=== PATIENT | female | born 1995 | race African-American/Black ===

== ENCOUNTER 2018-10-12 07:14 | Emergency (ER) | payer OTHER ==
[2018-10-12 07:28] VITALS: BP 117/56; PULSE 75; TEMP 98.4; BMI 34.7
--- NOTE | 2018-10-12 07:40 | PDOC ---
History of Present Illness - General Chief Complaint: Injury Stated Complaint: R ANKLE INJURY Time Seen by Provider: 10/12/18 07:33 History Source: Patient - History of Present Illness Occurred: reports: other Lower Extremity Pain Location: right: ankle Method of Injury: Yes: fell Past History - Past Medical History Allergies/Adverse Reactions: Allergies Allergy/AdvReac Type Severity Reaction Status Date / Time No Known Allergies Allergy Verified 01/27/16 14:51 Home Medications: Ambulatory Orders Cholecalciferol (Vitamin D3) [Vitamin D3] 0 unit PO DAILY 10/12/18 Ferrous Sulfate [Iron] 325 mg PO DAILY 10/12/18 Ibuprofen [Motrin -] 400 mg PO Q6H PRN 10/12/18 Anemia: Yes COPD: No - Immunization History Immunization Up to Date: No - Suicide/Smoking/Psychosocial Hx Smoking History: Never smoked Have you smoked in the past 12 months: No Information on smoking cessation initiated: No Hx Alcohol Use: No Drug/Substance Use Hx: No Substance Use Type: None Review of Systems - Review of Systems Musculoskeletal: Yes: Joint Pain, Joint Swelling *Physical Exam - Vital Signs Last Vital Signs Temp Pulse Resp BP Pulse Ox 98.4 F 75 18 117/56 L 99 10/12/18 07:16 10/12/18 07:16 10/12/18 07:16 10/12/18 07:16 10/12/18 07:16 - Physical Exam General Appearance: Yes: Appropriately Dressed. No: Apparent Distress HEENT: positive: Normal Voice Extremity: positive: Swelling (minimal sweling to lat malleolus of R ankle, limping in ED) ED Treatment Course - RADIOLOGY Radiology Studies Ordered: Category Date Time Status ANKLE & FOOT-RIGHT* [RAD] Stat Radiology 10/12/18 07:36 Ordered Medical Decision Making - Medical Decision Making 10/12/18 07:38 23-year-old female, no significant history, here with pain and swelling to R ankle after fall while intoxicated 3 days ago. Has been able to bear weight but painful. States she remembers falling and denies any head injury. No headache, dizziness, nausea or vomiting at this time see exam R/o ankle fx, likely sprain -XR 10/12/18 08:31 XR neg. BRIANA bandage placed. Dc w/ supportive tx and ortho f/u as needed *DC/Admit/Observation/Transfer Diagnosis at time of Disposition: Ankle sprain Qualifiers: Encounter type: initial encounter Involved ligament of ankle: unspecified ligament Laterality: right Qualified Code(s): S93.401A - Sprain of unspecified ligament of right ankle, initial encounter - Discharge Dispostion Disposition: HOME Condition at time of disposition: Good - Referrals Referrals: Cari Swartz MD [Primary Care Provider] - Boaz Casanova MD [Staff Physician] - - Patient Instructions Printed Discharge Instructions: Ankle Sprain Additional Instructions: You have a mild ankle sprain, which can take several days to a week or 2 to fully heal. Take motrin or Tylenol as needed for pain and keep BRIANA in place for swelling. You can also ice on area and elevate extremity at home If after 2 weeks you're having any significant pain, please follow-up with orthopedic - Post Discharge Activity Forms/Work/School Notes: Back to Work
== END 2018-10-12 08:41 | disposition home or self-care (01) ==
LOC: JER 07:14
DX: S93.401A Sprain of unspecified ligament of right ankle, initial encounter (principal); W18.39XA Other fall on same level, initial encounter; Y93.89 Activity, other specified; Y92.89 Other specified places as the place of occurrence of the external cause; Y99.8 Other external cause status
CPT/HCPCS: 73610-TC-RT-FY; 73630-TC-RT-FY; 84703; 99281-25

== ENCOUNTER 2018-12-30 13:41 | Emergency (ER) | payer OTHER ==
[2018-12-30 14:07] VITALS: BP 103/61; PULSE 58; TEMP 98.3; BMI 30.9
--- NOTE | 2018-12-30 14:08 | PDOC ---
Rapid Medical Evaluation Time Seen by Provider: 12/30/18 14:03 Medical Evaluation: Allergies Allergy/AdvReac Type Severity Reaction Status Date / Time No Known Allergies Allergy Verified 12/30/18 14:01 12/30/18 14:03 The patient is a 23 y/o F who presents to the ER for lower abdominal pain and dysuria for three days. She also complains of sore throat. She is requesting STD testing at this time also Exam: Suprapubic tenderness. Throat is non-erythematous with no exudate or edema. Afebrile Orders: Urine, STD panel Pt to proceed to the ER for further evaluation Discharge Disposition - Diagnosis Dysuria - Referrals - Patient Instructions - Post Discharge Activity
[2018-12-30 14:43] LABS: BASO % 0.9 % (0-2.0); EOS % 2.7 % (0-4.5); LYMPH % 33.8 % (8-40); MCH 26.8 pg (25.7-33.7); MCHC 32.3 g/dl (32.0-36.0); MEAN CELL VOLUME 82.9 fl (80-96); MEAN PLT VOLUME 9.8 fl (7.5-11.1); MONO % 6.8 % (3.8-10.2); NEUT % 55.8 % (42.8-82.8); PLATELET COUNT 215 K/MM3 (134-434); RBC 4.47 M/mm3 (3.60-5.2); RDW 14.2 % (11.6-15.6); WHITE BLOOD COUNT 5.9 K/mm3 (4.0-10.0)
[2018-12-30 15:14] LABS: ALBUMIN 3.8 g/dl (3.4-5.0); BILIRUBIN,TOTAL 0.6 mg/dL (0.2-1); BLOOD UREA NITROGEN 9.3 mg/dL (7-18); CALCIUM 9.4 mg/dL (8.5-10.1); CREATININE 0.8 mg/dL (0.55-1.3); POTASSIUM 4.1 mmol/L (3.5-5.1); TOT PROT 7.4 g/dl (6.4-8.2)
--- NOTE | 2018-12-30 15:41 | PDOC ---
History of Present Illness - General Chief Complaint: Pain Stated Complaint: ABD. PAIN Time Seen by Provider: 12/30/18 14:03 History Source: Patient Exam Limitations: No Limitations Past History - Past Medical History Allergies/Adverse Reactions: Allergies Allergy/AdvReac Type Severity Reaction Status Date / Time No Known Allergies Allergy Verified 12/30/18 14:01 Home Medications: Ambulatory Orders Cholecalciferol (Vitamin D3) [Vitamin D3] 0 unit PO DAILY 10/12/18 Ferrous Sulfate [Iron] 325 mg PO DAILY 10/12/18 Ibuprofen [Motrin -] 400 mg PO Q6H PRN 10/12/18 Anemia: Yes COPD: No - Immunization History Immunization Up to Date: No - Suicide/Smoking/Psychosocial Hx Smoking History: Never smoked Have you smoked in the past 12 months: No Hx Alcohol Use: Yes Drug/Substance Use Hx: No Substance Use Type: None *Physical Exam - Vital Signs Last Vital Signs Temp Pulse Resp BP Pulse Ox 98.3 F 58 L 16 103/61 100 12/30/18 14:02 12/30/18 14:02 12/30/18 14:02 12/30/18 14:02 12/30/18 14:02 - Physical Exam General Appearance: No: Apparent Distress HEENT: positive: Normal Voice. negative: Muffled/Hoarse voice, Pharyngeal Erythema, Tonsillar Exudate, Tonsillar Erythema Respiratory/Chest: positive: Lungs Clear, Normal Breath Sounds. negative: Respiratory Distress Cardiovascular: positive: Regular Rhythm, Regular Rate, S1, S2. negative: Murmur Female Pelvic Exam: positive: discharge (white D/C, no foul odor). negative: CMT, adnexal tenderness Gastrointestinal/Abdominal: positive: Normal Bowel Sounds, Soft. negative: Tender, Distended, Guarding, Rebound Musculoskeletal: negative: CVA Tenderness Neurologic: positive: Alert, Normal Mood/Affect ED Treatment Course - LABORATORY CBC & Chemistry Diagram: 12/30/18 14:24 12/30/18 14:24 - ADDITIONAL ORDERS Additional order review: Laboratory Results 12/30/18 14:24 Sodium 138 Potassium 4.1 Chloride 107 Carbon Dioxide 26 Anion Gap 5 L BUN 9.3 Creatinine 0.8 Est GFR (CKD-EPI)AfAm 121.29 Est GFR (CKD-EPI)NonAf 104.65 Random Glucose 92 Calcium 9.4 Total Bilirubin 0.6 AST 14 L ALT 19 Alkaline Phosphatase 49 Total Protein 7.4 Albumin 3.8 12/30/18 14:24 RBC 4.47 MCV 82.9 MCHC 32.3 RDW 14.2 MPV 9.8 Neutrophils % 55.8 Lymphocytes % 33.8 Monocytes % 6.8 Eosinophils % 2.7 Basophils % 0.9 Medical Decision Making - Medical Decision Making 23 y/o F hx of anemia presents with LLQ abd pain x 2-3 days along with white/ clear vaginal D/C and foul odor to vagina. Patient requesting STD check up. Denies fever, sob, cp, n/v/d, dysuria, hematuria. Is sexually active with 1 partner; denies hx of STDs. Also mentions c/o slight throat irritation from today. Throat irritation - exam unremarkable, no concern for strep Lower abd pain - no concern for PID, TBO Plan: GC, trich testing, HIV test, UA, UCG 12/30/18 15:35 Pending urine results and HIV test Signed out to SONJA Land 12/30/18 16:17 *DC/Admit/Observation/Transfer Diagnosis at time of Disposition: Lower abdominal pain - Discharge Dispostion Condition at time of disposition: Stable - Referrals Referrals: Cari Swartz MD [Primary Care Provider] - - Patient Instructions - Post Discharge Activity
--- NOTE | 2018-12-30 16:34 | PDOC ---
*Physical Exam - Vital Signs Last Vital Signs Temp Pulse Resp BP Pulse Ox 98.3 F 58 L 16 103/61 100 12/30/18 14:02 12/30/18 14:02 12/30/18 14:02 12/30/18 14:02 12/30/18 14:02 - Physical Exam Comments: 12/30/18 16:34 Sign-out received from outgoing ER provider Ghazal. Pt interviewed and examined. Ancillary studies reviewed. Awaiting lab results. 12/30/18 17:46 Patient persistently complains of malodorous discharge. Given symptoms, will treat for BV. Flagyl 500 mg bid sent to pharm. Patient refused to wait for HIV test results. Explained to patient that she will need to go to medical records to receive HIV test results, patient verbalized understanding and agrees to plan. Advised patient to take medication as prescribed and follow up with [facility] if symptoms persist. Advised patient of signs and symptoms for return to ED. Patient verbalized understanding and agrees to plan. ED Treatment Course - LABORATORY CBC & Chemistry Diagram: 12/30/18 14:24 12/30/18 14:24 - ADDITIONAL ORDERS Additional order review: Laboratory Results 12/30/18 12/30/18 14:38 14:24 Sodium 138 Potassium 4.1 Chloride 107 Carbon Dioxide 26 Anion Gap 5 L BUN 9.3 Creatinine 0.8 Est GFR (CKD-EPI)AfAm 121.29 Est GFR (CKD-EPI)NonAf 104.65 Random Glucose 92 Calcium 9.4 Total Bilirubin 0.6 AST 14 L ALT 19 Alkaline Phosphatase 49 Total Protein 7.4 Albumin 3.8 Urine HCG, Qual Negative 12/30/18 14:24 RBC 4.47 MCV 82.9 MCHC 32.3 RDW 14.2 MPV 9.8 Neutrophils % 55.8 Lymphocytes % 33.8 Monocytes % 6.8 Eosinophils % 2.7 Basophils % 0.9 *DC/Admit/Observation/Transfer Diagnosis at time of Disposition: Bacterial vaginosis, Screen for STD (sexually transmitted disease) - Discharge Dispostion Disposition: HOME Condition at time of disposition: Stable - Prescriptions Prescriptions: metroNIDAZOLE [Flagyl -] 500 mg PO DAILY #14 tablet - Referrals Referrals: Cari Swartz MD [Primary Care Provider] - [facility] [Outside] - Patient Instructions Printed Discharge Instructions: Facts About Sexually Transmitted Infections, DI for Bacterial Vaginosis Additional Instructions: Please take medications as prescribed. Follow up with OBGYN within 1-2 weeks for continued monitoring of your symptoms. If you develop any new or worsening symptoms, please return to the ER. - Post Discharge Activity
[2018-12-30 16:53] LABS: URINE APPEARANCE CLEAR; URINE BILIRUBIN NEGATIVE (NEGATIVE); URINE COLOR YELLOW; URINE GLUCOSE (UA) NEGATIVE (NEGATIVE); URINE KETONE NEGATIVE (NEGATIVE); URINE LEUK ESTERASE NEGATIVE (NEGATIVE); URINE NITRITE NEGATIVE (NEGATIVE); URINE PROTEIN NEGATIVE (NEGATIVE)
[2018-12-31 08:56] LABS: RPR NONREACTIVE (NONREACTIVE)
== END 2018-12-30 18:39 | disposition home or self-care (01) ==
LOC: JER 13:41 → SUPCPDRO 13:41 → JER 18:39
DX: N76.0 Acute vaginitis (principal); B96.89 Other specified bacterial agents as the cause of diseases classified elsewhere; Z11.3 Encounter for screening for infections with a predominantly sexual mode of transmission
CPT/HCPCS: 36415; 80053; 81003; 84703; 85025; 86593; 87086; 87389; 87491; 87591; 87661; 99282-25

== ENCOUNTER 2023-04-09 21:44 | Emergency (ER) | payer BC, OTHER ==
[2023-04-09 21:56] VITALS: BP 120/71; PULSE 97; RESP 18; TEMP 98.2; BMI 39.4
[2023-04-09] MEDS ORDERED: diphenhydrAMINE HCL 25 MG CAPSULE (FP) PO ONE (22:15)
[2023-04-09] MEDS ORDERED: FAMOTIDINE 20 MG TABLET PO ONE (22:15)
[2023-04-09] MEDS ORDERED: predniSONE 20 MG TABLET (UD) PO ONE (22:16)
== END 2023-04-09 23:00 | disposition home or self-care (01) ==
LOC: JERFT 21:44
DX: L25.9 Unspecified contact dermatitis, unspecified cause (principal)
CPT/HCPCS: 99283-25

== ENCOUNTER 2024-05-28 15:12 | Emergency (ER) | payer OTHER ==
[2024-05-28 15:26] VITALS: BP 118/80; PULSE 85; RESP 18; TEMP 98.4; BMI 31.7
[2024-05-28 16:11] LABS: BASO % 0.8 % (0-2.0); EOS % 1.5 % (0-4.5); HEMATOCRIT 32.9 % (32.4-45.2); HEMOGLOBIN 10.3 GM/dL (10.7-15.3); LYMPH % 26.2 % (8-40); MCH 21.7 pg (25.7-33.7); MCHC 31.1 g/dl (32.0-36.0); MEAN CELL VOLUME 69.6 fl (80-96); MEAN PLT VOLUME 9.4 fl (7.5-11.1); MONO % 10.6 % (3.8-10.2); NEUT % 60.9 % (42.8-82.8); PLATELET COUNT 237 10^3/uL (134-434); RBC 4.73 M/mm3 (3.60-5.2); RDW 22.2 % (11.6-15.6); WHITE BLOOD COUNT 4.9 K/mm3 (4.0-10.0)
[2024-05-28 16:31] LABS: POTASSIUM 3.7 mmol/L (3.5-5.1)
[2024-05-28 16:32] LABS: CALCIUM 9.1 mg/dL (8.5-10.1)
[2024-05-28 16:33] LABS: BLOOD UREA NITROGEN 7.8 mg/dL (7-18)
[2024-05-28 16:36] LABS: CREATININE 0.8 mg/dL (0.55-1.3)
[2024-05-28] MEDS ORDERED: ONDANSETRON 4 MG/2 ML VIAL ONE (17:11)
[2024-05-28] MEDS ORDERED: FAMOTIDINE 20 MG/50 ML IVPB 20 MG/50 ML MG IVPB ONE (17:11)
[2024-05-28] MEDS: ONDANSETRON 4 MG/2 ML VIAL IVPUSH ONE (17:12)
[2024-05-28] MEDS: FAMOTIDINE 20 MG/50 ML IVPB 20 MG/50 ML MG IVPB ONE (17:12)
[2024-05-28 17:27] LABS: ANISOCYTOSIS 1+; MACROCYTOSIS 1+
[2024-05-28 17:29] LABS: HCV DIAGNOSTIC IN-HOUSE W/RFLX NON-REACTIVE (NONREACTIVE); HIV INTERPRETATION NEGATIVE (NEGATIVE)
== END 2024-05-28 18:32 | disposition home or self-care (01) ==
LOC: JER 15:12
PROC: 3E033GC Introduction of Other Therapeutic Substance into Peripheral Vein, Percutaneous Approach (ICD-10-PCS; principal; 2024-05-28)
PROC: 3E033GC Introduction of Other Therapeutic Substance into Peripheral Vein, Percutaneous Approach (ICD-10-PCS; 2024-05-28)
DX: R07.2 Precordial pain (principal); R06.02 Shortness of breath; R11.0 Nausea; Z20.822 Contact with and (suspected) exposure to COVID-19
CPT/HCPCS: 0241U-QW; 36415; 71046-TC-FY; 80048; 84484; 85025; 85379; 86803; 87389; 93005; 93010; 99285-25